=== PATIENT | male | born 2000 | race Caucasian/White ===

== ENCOUNTER 2025-02-13 13:36 | Emergency (ER) | payer BC ==
[~2025-02-13] VITALS: Ht 185.4 cm; Wt 139.4 kg
[2025-02-13 13:42] VITALS: BP 154/102; PULSE 92; RESP 16; TEMP 97.7; O2SAT 98
--- NOTE | 2025-02-13 16:25 | RADIOLOGY REPORT ---
DI LUMBAR SPINE COMPLTE, HISTORY: lower back pain into right leg no injury ap/lateral/flex/extension films COMPARISON: None TECHNICAL DATA: Frontal and lateral views were obtained of the lumbar spine and frontal views with left and right lateral bending. FINDINGS: There are 5 lumbar type vertebral bodies. Lumbar curvature is within normal limits. There is no spondylolisthesis. Vertebral body heights are maintained. Disk heights are normal. The facet joints appear normal. The sacroiliac joints are symmetric. Paraspinal soft tissues are within normal limits. IMPRESSION: No acute fracture or dislocation of the lumbar spine.
[2025-02-13] MEDS ORDERED: METH4TAB81 PO (16:50)
[2025-02-13] MEDS ORDERED: GABA-530 PO (16:50)
--- NOTE | 2025-02-13 16:52 | Physician Documentation ---
History of Present Illness ~ Chief Complaint: Hip pain Stated Complaint: HIP PAIN Time Seen by MD: 15:23 OK to notify your PCP?: Yes Source: patient Mode of Arrival: POV Exam Limitations: no limitations HPI 24-year-old male with chief complaint right lower back pain that radiates into his leg and came on two days ago. He states a few weeks ago he lifted a heavy patient when he was at work but he denies any immediate precipitating injury or event that he can think of that could have caused this. No prior history of back problems that he is aware of. He denies any weakness of his leg, urinary retention or bowel or bladder incontinence. Pre arrival treatment with Motrin 800 mg have not provided relief of the pain. Pain has kept him awake at night. He also has missed work due to the pain in his requesting a work note for the next two days as he missed yesterday and today. Medication Reconciliation Allergies: Coded Allergies: No Known Allergies (Unverified , 02/13/25) Past Medical History Past Medical History: No Pertinent History Past Surgical History: noncontributory Drug Use: none Lives In: Home Occupation: employed Review of Systems All Other Systems at this time: Reviewed and Negative Physical Exam Physical Exam Vital Signs: Temperature: 97.7, Source: Temporal, Heart Rate: 92, Respiratory Rate: 16, BP: 154/102, Pulse Oximetry: 98, Weight: 139.400 Oxygen Flow Rate: 0 Physical Exam General Appearance: Alert, WD/WN. NAD. HEENT: NCAT, PERRL, EOMI. Neck: Supple, trachea midline. Cardiovascular: RRR. No m/r/g. Lungs: CTAB. Breathing unlabored Musculoskeletal: No tenderness over the spinous processes of the lumbar spine there is tenderness over the right paraspinal muscles of the lower lumbar spine approximately L4-L5 and S1 area. It tenderness over the right SI joint. No tenderness over the piriformis muscle. Patient is able to go from a lying down to a standing position without assistance. He has normal strength with dorsi and plantar flexion. Negative SLR. Extremities: Normal inspection. No edema. Skin: Warm/dry, normal color Neurological: Alert and oriented x4, normal gait. Psychiatric: Affect congruent with mood. Progress Results/Orders Results/Orders Orders - KARLY MCKEON Lumbar Spine Complte (02/13/25 16:13) Completed Orders - KARLY MCKEON Lumbar Spine Complte (02/13/25 16:13) Vital Signs 02/13/25 13:42 Temp 97.7 Pulse 92 Resp 16 B/P (MAP) 154/102 Pulse Ox 98 O2 Flow Rate 0 Medical Decision Making Differential Dx:Considerations: Include: AAA, Aortic dissection, Appendicitis, Bowel obstruction, Cholelithiasis, Cholangitis, DJD, Fracture, Hepatitis, HNP, Musculoskeletal pain, Pancreatitis, Pyelonephritis, Renal infarction, Strain, Urinary obstruction, Urolithiasis, Urinary tract infection Differential Diagnosis No evidence of herniated disc as patient's pain is better when he is hunched over and lumbar flexion and this does not go along with herniated discs also there was no precipitating injury or event such as bending over and lifting something heavy that would have been a mechanism that would have caused a herniated disc. Patient has a negative straight leg raise. Departure Time of Disposition: 16:49 Disposition: HOME / SELF CARE / HOMELESS Impression: Primary Impression: Acute back pain Qualified Codes: M54.41 - Lumbago with sciatica, right side Condition: Stable Additional Instructions: Copy of your x-ray results are below there is no evidence of any anterior or retrolisthesis or degenerative changes noted. I recommend a Medrol Dosepak and the gabapentin which we discussed and you were mutually on board with. If worsening of symptoms return to the ER otherwise follow up with your primary care provider for referral for physical therapy. If weakness of your leg, urinary retention or bowel or bladder incontinence return to the ER. Patient: CONSUELO OSBORN Medical Record: [id number] [facility] : 2000, Age: 24 Sex: Male Location: ER Patient Status: REG ER Service Date/Time: 02/13/251612 Ordering Physician: KARLY MCKEON Exam: LUMBAR SPINE COMPLTE DI LUMBAR SPINE COMPLTE, HISTORY: lower back pain into right leg no injury ap/lateral/flex/extension films COMPARISON: None TECHNICAL DATA: Frontal and lateral views were obtained of the lumbar spine and frontal views with left and right lateral bending. FINDINGS: There are 5 lumbar type vertebral bodies. Lumbar curvature is within normal limits. There is no spondylolisthesis. Vertebral body heights are maintained. Disk heights are normal. The facet joints appear normal. The sacroiliac joints are symmetric. Paraspinal soft tissues are within normal limits. IMPRESSION: No acute fracture or dislocation of the lumbar spine. Departure Forms: Excuse form Work or School Excuse beginning now through the following date: Feb 14, 2025 May Return to full physical activity as of: Feb 15, 2025 Referrals: NO PRIMARY CARE PROVIDER (PCP) Prescriptions Gabapentin (Gabapentin) 100 Mg Capsule 1 CAP PO Q8H for 10 Days, #30 CAP 0 Refills Prov: KARLY MCKEON 02/13/25 Methylprednisolone (Medrol Dosepak) 4 Mg Tab.ds.pk 0 PO UD, #21 TAB 0 Refills take 6 Pills Day 1, 5 Pills Day 2, 4 Pills Day 3, 3 Pills Day 4, 2 Pills Day 5 and 1 pill Day 6 Prov: KARLY MCKEON 02/13/25 Education Educated: Patient Educated regarding: diagnosis, treatment, need for follow up Signature Scribe Signature: x Attestation: KARLY Sage Feb 13, 2025 16:52
== END 2025-02-13 17:15 | disposition home or self-care (01) ==
LOC: ER 13:37
DX: M54.9 Dorsalgia, unspecified (principal)
CPT/HCPCS: 72110; 99283